=== PATIENT | female | born 1975 | race American Indian/Alaskan Native ===

== ENCOUNTER 2020-05-12 09:12 | Outpatient (CLI) | payer OTHER ==
--- NOTE | 2020-05-12 09:55 | Mammography Report ---
DIGITAL DIAGNOSTIC MAMMOGRAM WITH CAD CONVENTIONAL, 05/12/2020 CLINICAL INFORMATION / INDICATION: Postbiopsy mammogram following left breast biopsy ABNORMAL MAMMO TECHNIQUE: Digital left mammographic imaging was performed. This examination was interpreted with the benefit of Computer-aided Detection analysis. COMPARISON: Prior outside mammogram 04/30/2020 FINDINGS: Breast Density: The breasts are heterogeneously dense, which may obscure small masses. Postbiopsy mammogram reveals a biopsy clip appropriately positioned at site of previously described m ass in the 2:00 position of the left breast located 5 cm from the nipple. IMPRESSION: 1. Appropriately positioned biopsy clip following left breast ultrasound-guided biopsy. Follow up recommendation: No recall. Post biopsy imaging. A "normal" or negative report should not discourage follow up or biopsy of a clinically significant f inding. A written summary of these findings will be mailed to the patient. The patient will be entered into a mammography reporting system which will generate a reminder letter for the patient's next appointmen t at the appropriate interval. According to the [employer], yearly mammograms are recommended starting at age 40 and continuing as long as a woman is in good health. Breast MRI is recommended for women with an liz roximately 20-25% or greater lifetime risk of breast cancer, including women with a strong family his tory of breast or ovarian cancer and women who have been treated for Hodgkin's disease. Signer Name: Altagracia Do MD Signed: 05/12/2020 9:51 AM Workstation Name: [id number]
== END 2020-05-12 09:13 | disposition home or self-care (01) ==
LOC: SPVWC 09:12
PROVIDERS: ATTEND Surgery
DX: N63.21 Unspecified lump in the left breast, upper outer quadrant (principal); R92.8 Other abnormal and inconclusive findings on diagnostic imaging of breast

== ENCOUNTER 2020-05-13 12:38 | Outpatient (CLI) | payer OTHER | END 2020-05-13 12:39 | disposition home or self-care (01) | LOC: LABHHL 12:38 | PROVIDERS: ATTEND Surgery | DX: N63.21 Unspecified lump in the left breast, upper outer quadrant (principal) | CPT/HCPCS: 88305 ==